=== PATIENT | male | born 1975 | race Caucasian/White ===

== ENCOUNTER 2017-05-21 11:19 | Day surgery (SDC) | payer OTHER ==
[2017-05-21] VITALS (9 sets, daily range): BP systolic 106–115; BP diastolic 64–78; PULSE 56–76; RESP 11–16; Ht 165.1 cm; Wt 72.5 kg
[~2017-05-21] VITALS: Ht 165.1 cm; Wt 72.5 kg
[~2017-05-21 11:19] MED LIST: ACETAMINOPHEN 1000 MG/100 ML IVPB ONE; CEFAZOLIN 1 GM INJ ONE; CYCL5TAB PO; NAPR550T48 PO; OMEP20CA9 PO; [UNRECOGNIZED DRUG - CODE] PO
[2017-05-21] MEDS ORDERED: CEFAZOLIN 2 GM/50 ML (PMX) 50 ML IVPB ONE (11:30)
[2017-05-21] MEDS ORDERED: SOD CHLORIDE 0.9% 1,000 ML IV SCH (11:30)
[2017-05-21] MEDS ORDERED: BUPIVACAINE 0.25% (MPF) 30 ML INJ ONE (13:07)
[2017-05-21] MEDS ORDERED: LIDOCAINE 100 MG SYRINGE ONE (13:40)
[2017-05-21] MEDS ORDERED: ROCURONIUM 50 MG INJ ONE (13:40)
[2017-05-21] MEDS ORDERED: PROPOFOL 20 ML ONE (13:40)
[2017-05-21] MEDS ORDERED: BUPIVACAINE 0.25%/EPI (SDV) 30 ML INJ INJ ONE (13:50)
[2017-05-21] MEDS ORDERED: POLYMYXIN/BACITRACIN 1L IRRIG ONE (13:50)
[2017-05-21] MEDS ORDERED: BUPIVACAINE 0.25%/EPI (SDV) 30 ML INJ ONE (13:53)
[2017-05-21] MEDS ORDERED: HYDROCODONE/APAP (5/325) TAB PO ONE (14:30)
--- NOTE | 2017-05-21 14:31 | OPR ---
Date/Time of Note Date/Time of Note DATE: 05/21/17 TIME: 14:28 Operative Report Procedure Date: May 21, 2017 Preoperative Diagnosis RIH incarcerated Postoperative Diagnosis same Operation Performed open incarcerated inguinal hernia repair with mesh right ilioinguinal nerve block Surgeon: Cory CARRANZA Indications This is a 41-year-old male with a right inguinal hernia that is incarcerated. He requires surgical repair. Risks alternatives benefits in personal discussed with the patient patient expresses understanding and consents to the operation Procedure Description Patient is taken to the OR and prepped and draped in usual sterile fashion. Surgical timeout was performed IV antibiotics are given. Right inguinal oblique incision is made with a 10 blade. Dissection cautery was carried onto the external oblique fascia. This is open with 15 blade dense incision is extended medially inferiorly lateral sparely. Cord structures identified and encircled with a [place] drain. Direct hernia is identified which is incarcerated and reduced. This portion of the Ultram for hernia system mesh large is used to secure and posterior this area with a running 0 Prolene from the pubic tubercle along the shelving edge of the inguinal ligament. Superiorly to the internal oblique this is secured with interrupted 3-0 Vicryl. Onlay mesh is secured in a similar fashion with a running 0 Prolene from the pubic tubercle along the shelving edge of the inguinal ligament. Strep surgery created and reapproximated around the cord structures to recreate the inguinal ring with interrupted 0 Prolene. Superiorly the onlay mesh is secured to the internal oblique with interrupted 3-0 Vicryl. Externally fascia is closed a running 3-0 Vicryl. Rita's was closed with interrupted 3-0 Vicryl. Skin is closed using skin gerard local anesthesia is injected into the incision line. Right ilioinguinal nerve block was also performed by identifying position 2 cm medial and 2 feet centimeters inferior to the ASIS. Using a fatty motion subcutaneous Marcaine is injected this area. Dry dressings were applied Cory CARRANZA May 21, 2017 14:31
[2017-05-21] MEDS: FENTAnyl 50 MCG/ML VIAL IV PRN ×4 (14:46→15:04)
[2017-05-21] MEDS ORDERED: FENTAnyl 50 MCG/ML VIAL IV PRN ×2 (15:00)
[2017-05-21] MEDS ORDERED: hydrALAzine 20 MG INJ IV PRN (15:00)
[2017-05-21] MEDS ORDERED: ONDANSETRON 4 MG INJ IV PRN (15:00)
[2017-05-21] MEDS ORDERED: LABETALOL HCL 20MG INJ IV PRN (15:00)
[2017-05-21] MEDS ORDERED: OXYCODONE/ACETAMINOPHEN (5/325) TAB PO PRN ×2 (15:00)
[2017-05-21] MEDS ORDERED: HYDROmorphONE (0.2 MG/ML) 10ML SYG IV PRN ×2 (15:00)
[2017-05-21] MEDS ORDERED: METOCLOPRAMIDE 10 MG INJ IV PRN (15:00)
[2017-05-21] MEDS ORDERED: DIPHENHYDRAMINE 50 MG INJ IV PRN (15:00)
[2017-05-21] MEDS ORDERED: MEPERIDINE 25 MG INJ IV PRN (15:00)
[2017-05-21] MEDS: HYDROmorphONE (0.2 MG/ML) 10ML SYG IV PRN ×2 (15:08→15:15)
== END 2017-05-21 16:40 | disposition home or self-care (01) ==
LOC: SDS 11:19
PROVIDERS: ATTEND Surgery
DX: K40.30 Unilateral inguinal hernia, with obstruction, without gangrene, not specified as recurrent (principal)
CPT/HCPCS: 49507; C1781; J0131; J0690; J1170; J2405; J3010; Z7512; Z7610; J1200; J2001

== ENCOUNTER 2017-07-04 09:55 | Day surgery (SDC) | payer MEDICARE, OTHER ==
[2017-07-04] VITALS (21 sets, daily range): BP systolic 110–146; BP diastolic 64–97; PULSE 82–96; RESP 12–22; Ht 165.1 cm; Wt 70.0 kg
[~2017-07-04] VITALS: Ht 165.1 cm; Wt 70.0 kg
[~2017-07-04 09:55] MED LIST changes: -ACETAMINOPHEN 1000 MG/100 ML IVPB ONE; -CEFAZOLIN 1 GM INJ ONE; +CEFAZOLIN 1 GM/50 ML (PMX) 50 ML IVPB SCH; -CYCL5TAB PO; -NAPR550T48 PO; -OMEP20CA9 PO; +SOD CHLORIDE 0.9% 1,000 ML IV SCH; -[UNRECOGNIZED DRUG - CODE] PO
[2017-07-04] MEDS ORDERED: CEFAZOLIN 1 GM/50 ML (PMX) 50 ML IVPB ONE (10:00)
[2017-07-04] MEDS ORDERED: SOD CHLORIDE 0.9% 1,000 ML IV SCH (10:00)
[2017-07-04] MEDS ORDERED: BUPIVACAINE 0.25% (MPF) 10 ML 10 ML VIAL ONE (11:22)
[2017-07-04] MEDS ORDERED: PROPOFOL 20 ML ONE (11:47)
[2017-07-04] MEDS ORDERED: NEOSTIGMINE 3 MG/3 ML SYRINGE ONE (11:47)
[2017-07-04] MEDS ORDERED: CEFAZOLIN 1 GM INJ ONE (11:47)
[2017-07-04] MEDS ORDERED: GLYCOPYRROLATE 0.4 MG INJ ONE (11:47)
[2017-07-04] MEDS ORDERED: FENTAnyl 50 MCG/ML VIAL ONE (11:47)
[2017-07-04] MEDS ORDERED: MIDAZOLAM 1 MG/ML 2 ML INJ ONE (11:47)
[2017-07-04] MEDS ORDERED: ROCURONIUM 50 MG INJ ONE (11:47)
[2017-07-04] MEDS ORDERED: DEXAMETHASONE 4 MG/ML 1 ML INJ ONE (11:48)
[2017-07-04] MEDS ORDERED: ONDANSETRON 4 MG INJ ONE (11:48)
[2017-07-04] MEDS ORDERED: PHENYLephrine (100 MCG/ML) 5ML SYG ONE (12:15)
[2017-07-04] MEDS ORDERED: SUGAMMADEX SODIUM 200 MG/2 ML VIAL IV ONE (12:24)
[2017-07-04] MEDS ORDERED: OXYCODONE/ACETAMINOPHEN (5/325) TAB PO PRN ×2 (12:30)
[2017-07-04] MEDS ORDERED: FENTAnyl 50 MCG/ML VIAL IV PRN ×3 (12:30)
[2017-07-04] MEDS ORDERED: ONDANSETRON 4 MG INJ IV PRN (12:30)
[2017-07-04] MEDS ORDERED: MEPERIDINE 25 MG INJ IV PRN (12:30)
[2017-07-04] MEDS ORDERED: EPHEDrine SULFATE 50 MG/5 ML SYG IV PRN (12:30)
[2017-07-04] MEDS ORDERED: MIDAZOLAM 1 MG/ML 2 ML INJ IV PRN (12:30)
[2017-07-04] MEDS ORDERED: IPRATROPIUM (NEB) 0.5 MG/2.5 ML AMP HHN PRN (12:30)
[2017-07-04] MEDS ORDERED: ALBUTEROL 0.083% (NEB) 2.5 MG/3 ML AMP HHN PRN (12:30)
[2017-07-04] MEDS ORDERED: LABETALOL HCL 20MG INJ IV PRN (12:30)
[2017-07-04] MEDS ORDERED: TRIMETHOBENZAMIDE 100 MG/ML VIAL IM PRN (12:30)
[2017-07-04] MEDS ORDERED: DIPHENHYDRAMINE 50 MG INJ IV PRN (12:30)
[2017-07-04] MEDS ORDERED: hydrALAzine 20 MG INJ IV PRN (12:30)
[2017-07-04] MEDS ORDERED: HYDROmorphONE (0.2 MG/ML) 10ML SYG IV PRN ×2 (12:30)
--- NOTE | 2017-07-04 12:34 | OPR ---
Date/Time of Note Date/Time of Note DATE: 07/04/17 TIME: 12:32 Operative Report Procedure Date: Jul 04, 2017 Preoperative Diagnosis symptomatic gallstones Postoperative Diagnosis same Operation Performed 1. laparoscopic cholecystectomy 2. therapeutic injection of subcutaneous marcaine cpt code 39308 Surgeon: Cory CARRANZA Anesthesia Type: general Estimated Blood Loss: 0 - 10 ml's Specimens gallbladder Grafts/Implants: none Complications: no Indications This is a 41-year-old male with symptomatic gallstones. He requires surgical excision of the gallbladder. Risks alternatives benefits and percent were discussed with the patient. Patient expresses understanding and consents to the operation. Procedure Description Patient is taken to the OR and prepped and draped in usual sterile fashion. Surgical timeout was performed. IV antibiotics are given. Infraumbilical incision is made transversely with a 15 blade. Dissection cautery was carried down to the fascia. The fascia was grasped with Paul's and divided with curved Fields scissors. 0 Vicryl U stitches placed into the fascia. Balloon Thakkar trocar is introduced. Pneumoperitoneum is established. Midepigastric 12 mm optical trocar was placed under direct visualization. Right upper quadrant right upper flank 5 mm optical trocar was placed under direct visualization. Upon initial inspection there is adhesions to the gallbladder which were taken down bluntly. The fundus was grasped and retracted in a lateral and outward maneuver. Lateral dissection is started with cautery. This helped identify the cystic duct. The critical view was established. The cystic duct is divided with 3 clips proximal 1 clip distal. The cystic artery is divided with 3 clips proximal 1 clip distal. The gallbladder is taken off the gallbladder bed. There gets good hemostasis. The gallbladder is retrieved using an Endo Catch bag. Ports removed under direct visualization. 0 Vicryl U stitch was tied down. Skin is closed using skin gerard. Therapeutic subcutaneous Marcaine was injected to all port sites. Dry dressings were applied. Cory CARRANZA Jul 04, 2017 12:34
[2017-07-04] MEDS: HYDROmorphONE (0.2 MG/ML) 10ML SYG IV PRN ×2 (12:53→13:13)
[2017-07-04] MEDS ORDERED: HYDROCODONE/APAP (5/325) TAB PO ONE (13:00)
== END 2017-07-04 15:55 | disposition home or self-care (01) ==
LOC: SDS 09:55
PROVIDERS: ATTEND Surgery
DX: K80.10 Calculus of gallbladder with chronic cholecystitis without obstruction (principal)
CPT/HCPCS: 47562; 88304; J0690; J1100; J1170; J1200; J2250; J2370; J2405; J3010; J2710